=== PATIENT | female | born 1990 | race Caucasian/White ===

== ENCOUNTER 2024-09-18 14:02 | Emergency (ER) | payer OTHER, SELFPAY ==
[2024-09-18 14:24] VITALS: BP 126/98; PULSE 99; RESP 20; TEMP 37.1; O2SAT 100
--- NOTE | 2024-09-18 14:30 | ED_ITS ---
HPI - URI/Sore Throat General Chief Complaint: Upper Respiratory Infection Stated Complaint: COUGH/SOB/ASTHMA Time Seen by Provider: 09/18/24 14:30 Source: patient Mode of arrival: ambulatory Limitations: no limitations History of Present Illness HPI Narrative: Federico is a 34-year-old female patient presenting to the clinic today with complaints of possible asthma attack. She reports she has cough and is short of breath. Symptoms started last night. States she has used up the last of her inhaler. Oxygen saturation initially 94-96% on room air. Patient feels as though she is struggling to breathe. Lung sounds are tight. MD elicited complaint: cough and other (Shortness of breath) Related Data Allergies Allergy/AdvReac Type Severity Reaction Status Date / Time Penicillins Allergy Severe Anaphylaxis Verified 09/18/24 14:48 azithromycin (From Zithromax) Allergy Intermediate Rash Verified 09/18/24 14:48 Review of Systems Review of Systems: Pertinent positives per HPI. Patient denies any fever, chills, rash, headache, visual changes, dizziness, chest pain, palpitations, nausea, vomiting, diarrhea, constipation, abdominal pain, or any urinary issues. PMFSH Comments At the time of my signature, I reviewed and agree with the nursing past medical, surgical, social, and family history. There is no relevant family history pertinent to the patient complaint. Exam Narrative: General: Well-developed, well nourished, in mild respiratory discomfort Head: Normocephalic, atraumatic Eyes: Pupils equally round and reactive to light bilaterally, EOM intact, sclera and conjunctive clear, no discharge, lids normal Ears: TMs intact and clear, ear canals clear, no drainage, grossly hearing normal. Nose: Nares patent, clear nasal discharge, no inflammation, no sinus tenderness. Mouth: Oral pharynx without lesions or masses, good dentition, MMM. Postnasal drip Neck: Supple, trachea midline, no enlargement of anterior or posterior cervical nodes, no thyroid masses or goiter palpable. Cardio: Regular rate and rhythm, s1 and s2 normal, no murmur appreciated. Resp: Lung sounds are tight with expiratory wheezing, no rhonchi, rales, or rubs Course Course Emergency Course: Portions of this record may have been created with voice recognition software. Level of Care: Express Care Visit Vital Signs Vital signs: Vital Signs Temperature 37.1 C 09/18/24 14:24 Pulse Rate 99 09/18/24 14:24 Respiratory Rate 20 09/18/24 14:24 Blood Pressure 126/98 H 09/18/24 14:24 Pulse Oximetry 100 09/18/24 14:24 Oxygen Delivery Room Air 09/18/24 14:24 Temperature 37.1 C 09/18/24 14:24 Pulse Rate 99 09/18/24 14:24 Respiratory Rate 20 09/18/24 14:24 Blood Pressure 126/98 H 09/18/24 14:24 Pulse Oximetry 100 09/18/24 14:24 Oxygen Delivery Room Air 09/18/24 14:24 Vital signs reviewed MDM - URI/Sore Throat MDM Narrative Medical decision making narrative: At the time of visit patient is resting comfortably on the exam table. Patient appears to be nontoxic. Labs: COVID and influenza testing was performed. COVID testing was negative. Influenza testing was positive for influenza A Medications: DuoNeb treatment hand-held neb given in the clinic today. This improved patient's lung sounds and she states she is able to breathe easier Plan: Patient has influenza A. Prescription for Tamiflu, prednisone, and albuterol inhaler. Supportive measures were discussed with the patient and they voiced understanding discharge instructions and agrees to treatment plan. Return precautions reviewed Differential Diagnosis Differential diagnosis: Likely upper respiratory infection, otitis media, sinusitis, viral infection, bronchitis, influenza, pharyngitis and other (COVID) Lab Data Labs: Lab Results 09/18/24 Range/Units 14:45 POC Influenza A Ag Positive (Negative) POC Influenza B Ag Negative (Negative) POC SARS CoV-2 Ag Negative (Negative) Discharge Plan Discharge Clinical Impression: Influenza A Asthma exacerbation Qualifiers: Asthma severity: mild Asthma persistence: intermittent Qualified Code(s): J45.21 - Mild intermittent asthma with (acute) exacerbation Patient Disposition: Home, Self-Care Condition: Stable Instructions: Antibiotic Form, Asthma (ED), Influenza (ED) Additional Instructions: Influenza testing was positive for influenza A. COVID testing was negative in the clinic today. DuoNeb treatment was given in the clinic today. Take prescription medications only as prescribed-albuterol inhaler, Tamiflu, and prednisone Increase fluids and stay well hydrated Tylenol/motrin for pain/fever Flonase and OTC antihistamines as directed Vicks vapor rub to open sinuses Sinus rinses for congestion Cepacol spray, cough drops, throat lozenges, warm tea with honey/lemon, gargle salt water to soothe throat BRAT diet for diarrhea Clear liquids x 24 hours then advance as tolerated for nausea/vomiting Go to the ED if you develop a worsening in your condition- high fever not controlled by Tylenol or Motrin, dehydration, weakness, lethargy, shortness of breath, or chest pain. Follow up with your PCP in 3-5 days if symptoms persist. Patient Language: Montenegrin Prescriptions: New prednisone 20 mg tablet 40 mg PO DAILY 5 Days Qty: 10 0RF albuterol sulfate 90 mcg/actuation HFA aerosol inhaler 2 puff inhalation Q4-6H PRN (Reason: shortness of breath or wheezing) 30 Days Qty: 8.5 0RF oseltamivir [Tamiflu] 75 mg capsule 75 mg PO Q12H 5 Days Qty: 10 0RF Follow-up/Referrals: PHYSICIAN,SORORITY SUPERVISOR [Primary Care Provider] - Time of Disposition: 14:47 Quality NIHSS Nursing Documentation ED NIHSS nursing documentation: reviewed/agree
[2024-09-18 14:40] VITALS: PULSE 110; RESP 20; O2SAT 100
[2024-09-18] MEDS: IPRATROPIUM 0.5 MG/ALBUTEROL SULFATE 2.5 MG AMPUL.NEB 3 ML INHALATION (14:43)
[2024-09-18 14:47] LABS: EDCOVIDSCREEN Negative (Negative); EDINFLUASCREEN Positive (Negative); EDINFLUBSCREEN Negative (Negative)
== END 2024-09-18 14:54 | disposition home or self-care (01) ==
PROVIDERS: Emergency Provider Nurse Practitioner Family
DX: J10.1 Influenza due to other identified influenza virus with other respiratory manifestations (principal); Z20.822 Contact with and (suspected) exposure to COVID-19
CPT/HCPCS: 87426; 87804; 99203; G0463

== ENCOUNTER 2025-02-04 11:06 | Emergency (ER) | payer OTHER, SELFPAY ==
[2025-02-04 11:13] VITALS: BP 112/90; PULSE 81; RESP 16; TEMP 36.6; O2SAT 99
--- NOTE | 2025-02-04 11:24 | ED.GENADULT ---
HPI - General Adult General Chief complaint: Medical Clearance Stated complaint: Docter's Note Source: patient and RN notes reviewed Mode of arrival: ambulatory Limitations: no limitations History of Present Illness HPI narrative: Patient is a 35-year-old female who presents to the [facility] with complaints of seizure yesterday. 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 She states that the seizure was witnessed by a co-worker. She believes that the seizure lasted 3-4 minutes. She states that her co-worker did mention that she had hit her head off a metal cabinet multiple times during the seizure. Patient does have history of seizures but states that they are refractory so she does not take any medications for them. She is alert and oriented x4 with no obvious neurological deficit at this time. Related Data Allergies Allergy/AdvReac Type Severity Reaction Status Date / Time Penicillins Allergy Severe Anaphylaxis Verified 02/04/25 11:53 azithromycin (From Zithromax) Allergy Intermediate Rash Verified 02/04/25 11:53 Review of Systems Review of Systems: CONSTITUTIONAL: Denies fever, chills, or sweats. EYES: Denies visual changes, redness, or discharge. ENT: Denies otalgia and sore throat CARDIOVASCULAR: Denies chest pain, palpitations, or edema. RESPIRATORY: Denies cough or dyspnea. GASTROINTESTINAL: Denies abdominal pain, nausea, vomiting, or diarrhea. GENITOURINARY: Denies dysuria or hematuria. SKIN: Denies rash or itching. MUSCULOSKELETAL: Denies back pain, joint pain, or myalgia. NEUROLOGIC: Reports headache. Pertinent positives per HPI. PMFSH Comments At the time of my signature, I reviewed and agree with the nursing past medical, surgical, social, and family history. There is no relevant family history pertinent to the patient complaint. Exam Narrative: GENERAL: This is a well-nourished, well-developed patient, in no apparent distress. HEAD: normocephalic, atraumatic. EYES: PERRLA. Sclera clear/white. Vision is grossly intact. EARS: External ears normal. Hearing grossly intact. NOSE: External nose normal with no obvious nasal discharge, nares without redness, no rhinorrhea. THROAT: Mucous membranes moist, posterior pharynx clear. NECK: Neck supple, non-tender without lymphadenopathy, masses or thyromegaly. CARDIOVASCULAR: Regular rate and rhythm without murmurs, gallops, or rubs. RESPIRATORY: Clear to auscultation. Breath sounds equal bilaterally. No wheezes, rales, or rhonchi. GASTROINTESTINAL: Abdomen soft, non-tender, nondistended. Bowel sounds are active. No hepato-splenomegaly, or palpable masses. No guarding. SKIN: warm, intact with no suspicious lesions or rash, good texture and turgor. NEURO: awake, alert, and oriented to person, place and time. There were no obvious focal neurologic abnormalities. Course Course Level of Care: Express Care Visit Vital Signs Vital signs: Vital Signs Temperature 97.9 F 02/04/25 11:13 Pulse Rate 81 02/04/25 11:13 Respiratory Rate 16 02/04/25 11:13 Blood Pressure 112/90 02/04/25 11:13 Pulse Oximetry 99 02/04/25 11:13 Oxygen Delivery Room Air 02/04/25 11:13 Temperature 97.9 F 02/04/25 11:13 Pulse Rate 81 02/04/25 11:13 Respiratory Rate 16 02/04/25 11:13 Blood Pressure 112/90 02/04/25 11:13 Pulse Oximetry 99 02/04/25 11:13 Oxygen Delivery Room Air 02/04/25 11:13 Reviewed Transfer Transfered to: [place] Transportation: Other (private vehicle) Transfer rationale: seizure; appropriate testing, evaluation, treatment Accepting physician: Dr. Hernandez Medical Decision Making MDM Narrative Medical decision making narrative: Patient directed to [place] emergency department for evaluation of seizure. Accepting physician is Dr. Hernandez. Patient transferred via private vehicle. Differential Diagnosis Differential Diagnosis: seizure, electrolyte abnormality, dehydration Vital Signs Vital Signs: Vital Signs Temperature 97.9 F 02/04/25 11:13 Pulse Rate 81 02/04/25 11:13 Respiratory Rate 16 02/04/25 11:13 Blood Pressure 112/90 02/04/25 11:13 Pulse Oximetry 99 02/04/25 11:13 Oxygen Delivery Room Air 02/04/25 11:13 Temperature 97.9 F 02/04/25 11:13 Pulse Rate 81 02/04/25 11:13 Respiratory Rate 16 02/04/25 11:13 Blood Pressure 112/90 02/04/25 11:13 Pulse Oximetry 99 02/04/25 11:13 Oxygen Delivery Room Air 02/04/25 11:13 Critical Care Time Critical Care Time Critical Care Time: No Discharge Plan Discharge Clinical Impression: Seizure Head injury Qualifiers: Encounter type: initial encounter Qualified Code(s): S09.90XA - Unspecified injury of head, initial encounter Patient Disposition: Acute Care Hospital Condition: Stable Additional Instructions: Go directly to [place] emergency department. Patient Language: Wolof Prescriptions: No Action prednisone 20 mg tablet 40 mg PO DAILY 5 Days Qty: 10 0RF albuterol sulfate 90 mcg/actuation HFA aerosol inhaler 2 puff inhalation Q4-6H PRN (Reason: shortness of breath or wheezing) 30 Days Qty: 8.5 0RF oseltamivir [Tamiflu] 75 mg capsule 75 mg PO Q12H 5 Days Qty: 10 0RF Follow-up/Referrals: PHYSICIAN,INSTRUMENT/CONTROL TECHNICIAN [Primary Care Provider] - Time of Disposition: 11:51
== END 2025-02-04 11:40 | disposition short-term general hospital (02) ==
PROVIDERS: Emergency Provider Nurse Practitioner
DX: R56.9 Unspecified convulsions (principal); S09.90XA Unspecified injury of head, initial encounter; W22.8XXA Striking against or struck by other objects, initial encounter; J45.909 Unspecified asthma, uncomplicated
CPT/HCPCS: 99212; G0463

== ENCOUNTER 2025-02-04 12:07 | Emergency (ER) | payer OTHER, SELFPAY ==
[2025-02-04 12:15] VITALS: BP 121/99; PULSE 99; RESP 20; TEMP 36.6; O2SAT 100
--- NOTE | 2025-02-04 14:12 | PC.NURSE ---
pt stated she is leaving and going to urgent care. pt exits in NAD with steady gait.
== END 2025-02-04 18:40 | disposition left against medical advice (07) ==
DX: R56.9 Unspecified convulsions (principal); S09.90XA Unspecified injury of head, initial encounter; W22.09XA Striking against other stationary object, initial encounter
CPT/HCPCS: 99199